=== PATIENT | female | born 1960 | race Caucasian/White ===

== ENCOUNTER 2021-03-31 08:38 | Day surgery (SDC) | payer BC ==
[2021-03-31] MEDS ORDERED: NA CHLORIDE 0.9% 1,000 ML ONE ×2 (08:44→12:27)
[2021-03-31] MEDS ORDERED: Mastisol Adhesive Liq ONE ×2 (10:57→14:35)
[2021-03-31] MEDS ORDERED: LIDOCAINE 1% W/EPI 1:100,000 MDV 20 ML VIAL ONE (10:57)
[2021-03-31] MEDS ORDERED: FENTANYL CITR 100 MCG/2 ML ONE ×2 (11:06→13:07)
[2021-03-31] MEDS ORDERED: MIDAZOLAM HCL 2 MG/2 ML INJ ONE (11:06)
[2021-03-31] MEDS ORDERED: propofoL 200 MG/20 ML VIAL IV ONE (11:06)
[2021-03-31] MEDS ORDERED: ROCURONIUM 50 MG/5 ML VIAL IV ONE (11:06)
[2021-03-31] MEDS ORDERED: dexAMETHasone 10 MG/ML VIAL ONE (11:06)
[2021-03-31] MEDS ORDERED: LIDOCAINE 2% MPF 5 ML VIAL ONE (11:07)
[2021-03-31] MEDS ORDERED: CEFAZOLIN SODIUM 1 GM/VIAL ONE (12:00)
[2021-03-31] MEDS ORDERED: ONDANSETRON 4 MG/2 ML VIAL ONE (12:06)
[2021-03-31] MEDS: HYDROMORPHONE HCL 1 MG/ML INJ ONE ×4 (13:42→15:59)
[2021-03-31] MEDS ORDERED: KETOROLAC 30 MG/ML INJ ONE (14:35)
[2021-03-31] MEDS ORDERED: CODEINE 30MG/APAP 300MG TAB ONE (16:38)
[2021-03-31 17:28] VITALS: BP 100/63; TEMP 97.3; O2SAT 94
--- NOTE | 2021-04-01 14:39 | OP ---
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 Procedure: Excision of left submandibular gland under general anesthesia. Anesthesia: General endotracheal anesthesia was administered. I also infiltrated approximately 10 m L of 1% lidocaine with 1:100,000 epinephrine into the incision site. Estimated Blood Loss: Approximately 25 to 30 mL. Specimen: Left submandibular gland was submitted to pathology for evaluation. Findings: Friable, scarred left submandibular gland that was multilobular. Complications: None. Disposition: Stable. The patient tolerated the procedure well. Indication For Procedure: The patient is a pleasant 60-year-old female, who presented to my office w ith multiple recurrent left submandibular gland infections secondary to sialodocholithiasis blocking the ducts and resulting in recurrent left floor of mouth abscess into Bella duct. Her condition khanna s been refractory to several incision and drainage procedures in the office as well as oral antibioti cs. These are indications to bring the patient to the operative suite for the above-mentioned proced ure. She understood and all questions were answered. Risks versus benefits and complications were e xplained in detail and a consent form was signed, which was placed in the chart. Description Of Procedure: The patient was transferred from the preoperative holding area to operativ e suite by Department of Anesthesia, placed on the operating table supine, sedated and intubated in n ormal fashion. I infiltrated approximately 10 mL of 1% lidocaine with 1:100,000 epinephrine to the l eft upper neck incision site. The upper neck was marked with a surgical marker and then the patient was sterilely prepped and draped. An incision was made with a #15 blade scalpel through the epidermal layer down to the platysma. The initial incision was made with a #15 blade scalpel and then I switched to a needlepoint Bovie electro cautery on the twentieth setting of coagulation. I then incised the platysma and the inferior edge o f the submandibular gland was identified and the tissues were elevated. The undersurface of the glan d was dissected to the submandibular capsule and then the soft tissues were taken off the superior mota rface of the gland being sure to stay in the plane of the fascia. The incision was carried out at le ast 2 cm below the mandible border to avoid the marginal mandibular nerve. The dissection was chuy d out along the inferior border where the facial artery was identified and ligated to the gland. The superior tissues were taken off the superior surface of the gland stay on the fascia. I then released it from the mylohyoid muscle and this was reflected superiorly. The salivary duct was identified and ligated and there was some accessory multilobular tissue along the inferior edge of th e gland and this was removed separately. The patient had a significantly scarred gland, which made d issection meticulous. She also had some oozing of blood after dissection was taken along the posteri or edge of the gland. Several vessels had to be clamped, ligated, and cut. Once the gland was compl etely removed, irrigation was introduced into the wound cavity and removed with suction. I then did a Valsalva and there was no evidence of bleeding vessels. I then placed Avitene into the wound bed f ollowed by closure of the platysma with a 3-0 Vicryl suture in an interrupted fashion. I then reappr oximated the subcutaneous and tissues with a 3-0 Vicryl suture in an interrupted fashion. I did brin g a small ASHELY drain through the skin and it was sutured to the skin with a 3-0 Ethilon suture. I then closed the dermal and epidermal layer with a 4-0 Monocryl suture in a subcuticular fashion. Ointmen t was placed as well as Steri-Strips and a compression dressing was applied. She was discharged to [facility] PACU in stable condition and will hopefully be able to be discharged home on antibiotic and analge sic medications, and will follow up in 1 day in my clinic for drain removal. She tolerated the procedure well. DAR/SEBASTIÁNL Voice ID: [id number] Report ID: [id number]
== END 2021-03-31 17:15 | disposition home or self-care (01) ==
LOC: OR 08:38
PROVIDERS: ATTEND Otolaryngology Facial Plastic Surgery
PROC: 0CTH0ZZ Resection of Left Submaxillary Gland, Open Approach (ICD-10-PCS; principal; 2021-03-31 10:00)
DX: K11.23 Chronic sialoadenitis (principal); K11.5 Sialolithiasis; Z20.822 Contact with and (suspected) exposure to COVID-19
CPT/HCPCS: 82947 ×2; 88307; 42440; U0002; J2704; J2250; J3010 ×2; J1100; J1170 ×2; J7030 ×2; J2405; J0690; 88305

== ENCOUNTER 2021-08-05 16:00 | Observation (INO) | payer BC ==
--- OUTSIDE RECORDS SUMMARY | 2021-08-05 16:04 | XMS REPORT | Continuity of Care Document ---
:1960 Author Organization [facility] t Address [address] [place] [address] Care Team Providers Name Role Phone DHRUV Primary Care Physician Unavailable LONA Attending Clinician Unavailable NICOLE Attending Clinician Unavailable RADIOLOGY Attending Clinician Unavailable Radiology Attending Clinician Unavailable DHRUV Attending Clinician Unavailable DOMINIC Attending Clinician Unavailable Dhruv WAYNE Attending Clinician Lab, Fam Pob I Attending Clinician Unavailable Kingsley DE LOS SANTOS Attending Clinician KINGSLEY Attending Clinician Unavailable Lainey WAYNE, A Attending Clinician UNKNOWN Attending Clinician Unavailable Clinic, Pcp Assessment Attending Clinician Unavailable Unknown Attending Clinician Unavailable Richard HERNANDEZ Attending Clinician Unavailable MD SOFYA Admitting Clinician Unavailable Richard HERNANDEZ Admitting Clinician Unavailable Payers Payer Name Policy Type Policy Number Effective Date Expiration Date S [facility] [id number] 2012 00:00:00 Problems Condition Condition Condition Status Onset Resolution Last Treating Co mments Source Name Details Category Date Date Treatment Clinician Date Type 2 Type 2 Disease Active 2016-04 [facility] diabetes, diabetes, 1-21 [place]y [place] uncontroll [place]controll [place] with 00 Medica l neuropathy neuropathy Br anch Neuropathy Neuropathy Disease Active 2016-04 U eveline 1-21 ity of 00:00: [place] 00 Medical Branch Type 2 Type 2 Disease Active 2014-04 Univers diabetes diabetes 0-29 ity of mellitus mellitus 00:00: [place] without without 00 Medical complicati complicati Br anch on on Hyperlipid Hyperlipid Disease Active 2014-04 U nivclaudia emia emia 0-29 ity of 00:00: [place] 00 Medical Branch Sleep Sleep Disease Active 2014-04 Univers apnea apnea 0-29 ity of 00:00: [place] [facility] Gout of Gout of Disease Active 2014-04 Univers foot foot 0-29 ity of 00:00: [place] [facility] Essential Essential Disease Active 2014-04 Uni vers hypertensi hypertensi 0-29 it y of on on 00:00: [place] [address] Medical Branch Allergies, Adverse Reactions, Alerts Allergy Allergy Status Severity Reaction(s) Onset Inactive Treating Comm ents Source Name Type Date Date Clinician Hydrocod Propensi Active Rash 2018-04 Univer s one ty to 2 ity of adverse 00:00: [place] reaction 00 Medical s Branch Ibuprofe Propensi Active Rash 2018-04 Univer s n ty to 2 ity of adverse 00:00: [place] reaction [facility] s Branch HYDROCOD DRUG Active High Rash 2018-04 Univers ONE INGREDI 2- ity of 00:00: [place] [facility] IBUPROFE DRUG Active High Rash 2018-04 Univers N INGREDI 2-31 ity of 00:00: [place] [address] Medical [place] Social History Social Habit Start Date Stop Date Quantity Comments Source Exposure to Yes [facility] SARS-CoV-2 [place] Medical (event) Branch Alcohol intake 2021-05-12 2021-05-12 Current [facility] 00:00:00 00:00:00 non-drinker of [facility] alcohol [place] (finding) Tobacco use and 2019-04-19 2019-04-19 Never used Universit y of exposure 00:00:00 00:00:00 [facility] Sex [birth year] At [birth year] Universit y of 00:00:00 00:00:00 [facility] Smoking Status Start Date Stop Date Source Never smoker [facility] Medical Branch Medications Ordered Filled Start Stop Current Ordering Indication Dosage Frequency Signature Comments Components Source Medication Medication Date Date Medication? Clinician (SIG) Name Name docusate 2019-04 Yes 100mg Take 100 Univ ers 100 mg 2-28 mg by ity of capsule 16:27: mouth 2 [place] 35 (two) Medical times Branch daily. docusate 2019-04 Yes 100mg Take 100 Univ ers 100 mg 2-28 mg by ity of capsule 16:27: mouth 2 [place] 35 (two) Medical times Branch daily. docusate 2020- Yes 100mg Take 100 Univ ers 100 mg 2-28 mg by ity of capsule 16:27: mouth 2 [place] 35 (two) Medical times Branch daily. docusate 2020- Yes 100mg Take 100 Univ ers 100 mg 2-28 mg by ity of capsule 16:27: mouth 2 [place] 35 (two) Medical times Branch daily. ferrous 2019-04 Yes 325mg Take 325 Unive rs sulfate 2-28 mg by ity of (IRON) 325 16:27: mouth [place] mg (65 mg 34 daily. Medical iron) Branch tablet CHOLECALCIF 2019-04 Yes 2000U Take 2,000 Univers KISHA, 2-28 Units by ity of VITAMIN D3, 16:27: mouth [place] (D3-2000 34 daily. Medical ORAL) Branch aspirin 2019-04 Yes 81mg Take 81 mg Univ ers (ASPIRIN 2-28 by mouth ity of LOW DOSE) 16:27: daily. [place] 81 mg EC 34 Medical tablet Branch CALCIUM 2019-04 Yes 1{tbl} Take 1 Univer s CARBONATE 2-28 tablet by ity o f (CALCIUM 16:27: mouth [place] 600 ORAL) 34 daily. Medical Branch ferrous 2019-04 Yes 325mg Take 325 Unive rs sulfate 2-28 mg by ity of (IRON) 325 16:27: mouth [place] mg (65 mg 34 daily. Medical iron) Branch tablet CHOLECALCIF 2019-04 Yes 2000U Take 2,000 Univers KISHA, 2-28 Units by ity of VITAMIN D3, 16:27: mouth [place] (D3-2000 34 daily. Medical ORAL) Branch aspirin 2019-04 Yes 81mg Take 81 mg Univ ers (ASPIRIN 2-28 by mouth ity of LOW DOSE) 16:27: daily. [place] 81 mg EC 34 Medical tablet Branch CALCIUM 2019-04 Yes 1{tbl} Take 1 Univer s CARBONATE 2-28 tablet by ity o f (CALCIUM 16:27: mouth [place] 600 ORAL) 34 daily. Medical Branch ferrous 2019- Yes 325mg Take 325 Unive rs sulfate 2-28 mg by ity of (IRON) 325 16:27: mouth [place] mg (65 mg 34 daily. Medical iron) Branch tablet CHOLECALCIF 2019-04 Yes 2000U Take 2,000 Univers KISHA, 2-28 Units by ity of VITAMIN D3, 16:27: mouth [place] (D3-2000 34 daily. Medical ORAL) Branch aspirin 2019-04 Yes 81mg Take 81 mg Univ ers (ASPIRIN 2-28 by mouth ity of LOW DOSE) 16:27: daily. [place] 81 mg EC 34 Medical tablet Branch CALCIUM 2019-04 Yes 1{tbl} Take 1 Univer s CARBONATE 2-28 tablet by ity o f (CALCIUM 16:27: mouth [place] 600 ORAL) 34 daily. Medical Branch ferrous 2019- Yes 325mg Take 325 Unive rs sulfate 2-28 mg by ity of (IRON) 325 16:27: mouth [place] mg (65 mg 34 daily. Medical iron) Branch tablet CHOLECALCIF 2019-04 Yes 2000U Take 2,000 Univers KISHA, 2-28 Units by ity of VITAMIN D3, 16:27: mouth [place] (D3-2000 34 daily. Medical ORAL) Branch aspirin 2019-04 Yes 81mg Take 81 mg Univ ers (ASPIRIN 2-28 by mouth ity of LOW DOSE) 16:27: daily. [place] 81 mg EC 34 Medical tablet Branch CALCIUM 2019-04 Yes 1{tbl} Take 1 Univer s CARBONATE 2-28 tablet by ity o f (CALCIUM 16:27: mouth [place] 600 ORAL) 34 daily. Medical Branch docusate 2019-04 Yes 100mg Take 100 Univ ers 100 mg 2-28 mg by ity of capsule 10:27: mouth 2 [place] 35 (two) Medical times Branch daily. ferrous 2019-04 Yes 325mg Take 325 Unive rs sulfate 2-28 mg by ity of (IRON) 325 10:27: mouth [place] mg (65 mg 34 daily. Medical iron) Branch tablet CHOLECALCIF 2019-04 Yes 2000U Take 2,000 Univers KISHA, 2-28 Units by ity of VITAMIN D3, 10:27: mouth [place] (D3-2000 34 daily. Medical ORAL) Branch aspirin 2019-04 Yes 81mg Take 81 mg Univ ers (ASPIRIN 2-28 by mouth ity of LOW DOSE) 10:27: daily. [place] 81 mg EC 34 Medical tablet Branch CALCIUM 2019-04 Yes 1{tbl} Take 1 Univer s CARBONATE 2-28 tablet by ity o f (CALCIUM 10:27: mouth [place] 600 ORAL) 34 daily. Medical Branch clotrimazol 2019-04 Yes [id number] 10mg Take 1 Univers e 10 mg 2-28 tablet by ity of malcolm 00:00: mouth 5 [place] 00 (five) Medical times Branch daily. clotrimazol 2020- Yes [id number] 10mg Take 1 Univers e 10 mg 2-28 tablet by ity of malcolm 00:00: mouth 5 (five) Medical times Branch daily. clotrimazol 2019-1 Yes [id number] 10mg Take 1 Univers e 10 mg 2-28 tablet by ity of malcolm 00:00: mouth 5 (five) Medical times Branch daily. clotrimazol 2019- Yes [id number] 10mg Take 1 Univers e 10 mg 2-28 tablet by ity of malcolm 00:00: mouth 5 (five) Medical times Branch daily. clotrimazol 2019-1 Yes [id number] 10mg Take 1 Univers e 10 mg 2-28 tablet by ity of malcolm 00:00: mouth 5 (five) Medical times Branch daily. clotrimazol 2019-0 2020- No [id number] 10mg Take 1 Univers e 10 mg 7-19 07-30 tablet by ity of malcolm 00:00: 04:59 mouth 5 [place] 00 :00 (five) Medical times Branch daily for 10 days. clotrimazol 2019-0 2020- No [id number] 10mg Take 1 Univers e 10 mg 7-19 07-30 tablet by ity of malcolm 00:00: 04:59 mouth 5 [place] 00 :00 (five) Medical times Branch daily for 10 days. amoxicillin 2018-04 Yes [id number] 1{tbl} Take 1 Univers -clavulanat 2-31 tablet by ity of e 00:00: mouth 2 [place] (AUGMENTIN) 00 (two) Medical 875-125 mg times Branch per tablet daily. amoxicillin 2018-04 Yes [id number] 1{tbl} Take 1 Univers -clavulanat 2-31 tablet by ity of e 00:00: mouth 2 [place] (AUGMENTIN) 00 (two) Medical 875-125 mg times Branch per tablet daily. amoxicillin 2018-04 Yes [id number] 1{tbl} Take 1 Univers -clavulanat 2-31 tablet by ity of e 00:00: mouth 2 [place] (AUGMENTIN) 00 (two) Medical 875-125 mg times Branch per tablet daily. amoxicillin 2018-04 Yes [id number] 1{tbl} Take 1 Univers -clavulanat 2-31 tablet by ity of e 00:00: mouth 2 [place] (AUGMENTIN) 00 (two) Medical 875-125 mg times Branch per tablet daily. amoxicillin 2018-04 Yes [id number] 1{tbl} Take 1 Univers -clavulanat 2-31 tablet by ity of e 00:00: mouth 2 [place] (AUGMENTIN) 00 (two) Medical 875-125 mg times Branch per tablet daily. amoxicillin 2018-04 Yes [id number] 1{tbl} Take 1 Univers -clavulanat 2-31 tablet by ity of e 00:00: mouth 2 [place] (AUGMENTIN) 00 (two) Medical 875-125 mg times Branch per tablet daily. amoxicillin 2018-04 Yes [id number] 1{tbl} Take 1 Univers -clavulanat 2-31 tablet by ity of e 00:00: mouth 2 [place] (AUGMENTIN) 00 (two) Medical 875-125 mg times Branch per tablet daily. loratadine 2018- Yes [id number] TAKE ONE Univers 10 mg 6-07 (1) ity of tablet 00:00: TABLET(S) 00 BY MOUTH Medical ONCE A Branch DAY. loratadine 2018-0 Yes [id number] TAKE ONE Univers 10 mg 6-07 (1) ity of tablet 00:00: TABLET(S) 00 BY MOUTH Medical ONCE A Branch DAY. loratadine 2018-0 Yes [id number] TAKE ONE Univers 10 mg 6-07 (1) ity of tablet 00:00: TABLET(S) 00 BY MOUTH Medical ONCE A Branch DAY. loratadine 2018-0 Yes [id number] TAKE ONE Univers 10 mg 6-07 (1) ity of tablet 00:00: TABLET(S) [place] 00 BY MOUTH Medical ONCE A Branch DAY. loratadine 2019-0 Yes [id number] TAKE ONE Univers 10 mg 6-07 (1) ity of tablet 00:00: TABLET(S) [place] 00 BY MOUTH Medical ONCE A Branch DAY. loratadine 2019-0 Yes [id number] TAKE ONE Univers 10 mg 6-07 (1) ity of tablet 00:00: TABLET(S) 00 BY MOUTH Medical ONCE A Branch DAY. loratadine 2019-0 Yes [id number] TAKE ONE Univers 10 mg 6-07 (1) ity of tablet 00:00: TABLET(S) [place] 00 BY MOUTH Medical ONCE A Branch DAY. sulfamethox 2019-0 Yes [id number] 1{tbl} Take 1 Univers azole-trime 4-09 tablet by ity of thoprim 00:00: mouth 2 [place] (BACTRIM 00 (two) Medical DS) 800-160 times Branch mg per daily. tablet mupirocin 2 2019-0 Yes [id number] Apply to Univers % ointment 4-09 area(s) 2 ity of 00:00: (two) [place] 00 times Medical daily. Branch Apply to nares and under fingernail s twice daily sulfamethox 2019-0 Yes [id number] 1{tbl} Take 1 Univers azole-trime 4-09 tablet by ity of thoprim 00:00: mouth 2 [place] (BACTRIM 00 (two) Medical DS) 800-160 times Branch mg per daily. tablet mupirocin 2 2019-0 Yes [id number] Apply to Univers % ointment 4-09 area(s) 2 ity of 00:00: (two) [place] 00 times Medical daily. Branch Apply to nares and under fingernail s twice daily sulfamethox 2019-0 Yes [id number] 1{tbl} Take 1 Univers azole-trime 4-09 tablet by ity of thoprim 00:00: mouth 2 [place] (BACTRIM 00 (two) Medical DS) 800-160 times Branch mg per daily. tablet mupirocin 2 2019-0 Yes [id number] Apply to Univers % ointment 4-09 area(s) 2 ity of 00:00: (two) [place] 00 times Medical daily. Branch Apply to nares and under fingernail s twice daily sulfamethox 2019-0 Yes [id number] 1{tbl} Take 1 Univers azole-trime 4-09 tablet by ity of thoprim 00:00: mouth 2 [place] (BACTRIM 00 (two) Medical DS) 800-160 times Branch mg per daily. tablet mupirocin 2 2019-0 Yes [id number] Apply to Univers % ointment 4-09 area(s) 2 ity of 00:00: (two) [place] 00 times Medical daily. Branch Apply to nares and under fingernail s twice daily sulfamethox 2019-0 Yes [id number] 1{tbl} Take 1 Univers azole-trime 4-09 tablet by ity of thoprim 00:00: mouth 2 [place] (BACTRIM 00 (two) Medical DS) 800-160 times Branch mg per daily. tablet mupirocin 2 Yes [id number] Apply to Univers % ointment 4-09 area(s) 2 ity of 00:00: (two) [place] 00 times Medical daily. Branch Apply to nares and under fingernail s twice daily sulfamethox Yes [id number] 1{tbl} Take 1 Univers azole-trime 4-09 tablet by ity of thoprim 00:00: mouth 2 [place] (BACTRIM 00 (two) Medical DS) 800-160 times Branch mg per daily. tablet mupirocin 2 Yes [id number] Apply to Univers % ointment 4-09 area(s) 2 ity of 00:00: (two) [place] 00 times Medical daily. Branch Apply to nares and under fingernail s twice daily sulfamethox Yes [id number] 1{tbl} Take 1 Univers azole-trime 4-09 tablet by ity of thoprim 00:00: mouth 2 [place] (BACTRIM 00 (two) Medical DS) 800-160 times Branch mg per daily. tablet mupirocin 2 Yes [id number] Apply to Univers % ointment 4-09 area(s) 2 ity of 00:00: (two) [place] 00 times Medical daily. Branch Apply to nares and under fingernail s twice daily acetaminoph 2017-04 Yes 1{tbl} Take 1 Un nancie en-codeine 1-26 tablet by ity of (TYLENOL-CO 00:00: mouth [place] DEINE #3) 00 every 6 Medical 300-30 mg (six) Branch tablet hours as needed for Pain (scale 4-6). acetaminoph 2017-04 Yes 1{tbl} Take 1 Un nancie en-codeine 1-26 tablet by ity of (TYLENOL-CO 00:00: mouth [place] DEINE #3) 00 every 6 Medical 300-30 mg (six) Branch tablet hours as needed for Pain (scale 4-6). acetaminoph 2017-04 Yes 1{tbl} Take 1 Un nancie en-codeine 1-26 tablet by ity of (TYLENOL-CO 00:00: mouth [place] DEINE #3) 00 every 6 Medical 300-30 mg (six) Branch tablet hours as needed for Pain (scale 4-6). acetaminoph 2017-04 Yes 1{tbl} Take 1 Un nancie en-codeine 1-26 tablet by ity of (TYLENOL-CO 00:00: mouth [place] DEINE #3) 00 every 6 Medical 300-30 mg (six) Branch tablet hours as needed for Pain (scale 4-6). acetaminoph 2017-04 Yes 1{tbl} Take 1 Un nancie en-codeine 1-26 tablet by ity of (TYLENOL-CO 00:00: mouth [place] DEINE #3) 00 every 6 Medical 300-30 mg (six) Branch tablet hours as needed for Pain (scale 4-6). acetaminoph 2017-04 Yes 1{tbl} Take 1 Un nancie en-codeine 1-26 tablet by ity of (TYLENOL-CO 00:00: mouth [place] DEINE #3) 00 every 6 Medical 300-30 mg (six) Branch tablet hours as needed for Pain (scale 4-6). acetaminoph 2017-04 Yes 1{tbl} Take 1 Un nancie en-codeine 1-26 tablet by ity of (TYLENOL-CO 00:00: mouth [place] DEINE #3) 00 every 6 Medical 300-30 mg (six) Branch tablet hours as needed for Pain (scale 4-6). allopurinol 2018-0 Yes 300mg Take 1 Uni vers 300 mg 2-07 tablet by ity of tablet 00:00: mouth [place] 00 daily. Medical Branch allopurinol 2018-0 Yes 300mg Take 1 Uni vers 300 mg 2-07 tablet by ity of tablet 00:00: mouth [place] 00 daily. Medical Branch allopurinol 2018-0 Yes 300mg Take 1 Uni vers 300 mg 2-07 tablet by ity of tablet 00:00: mouth [place] 00 daily. [facility] Branch allopurinol 2018-0 Yes 300mg Take 1 Uni vers 300 mg 2-07 tablet by ity of tablet 00:00: mouth [place] 00 daily. [facility] Branch allopurinol 2018-0 Yes 300mg Take 1 Uni vers 300 mg 2-07 tablet by ity of tablet 00:00: mouth [place] 00 daily. Medical Branch allopurinol 2017-0 Yes 300mg Take 1 Uni vers 300 mg 2-07 tablet by ity of tablet 00:00: mouth [place] 00 daily. Medical Branch allopurinol 2018-0 Yes 300mg Take 1 Uni vers 300 mg 2-07 tablet by ity of tablet 00:00: mouth [place] 00 daily. Medical Branch nabumetone 2017-0 Yes TAKE ONE Uni vers 750 mg 2-05 (1) ity of tablet 00:00: TABLET(S) [place] 00 BY MOUTH Medical TWICE A Branch DAY. nabumetone 0 Yes TAKE ONE Uni vers 750 mg 2-05 (1) ity of tablet 00:00: TABLET(S) [place] 00 BY MOUTH Medical TWICE A Branch DAY. nabumetone 0 Yes TAKE ONE Uni vers 750 mg 2-05 (1) ity of tablet 00:00: TABLET(S) [place] 00 BY MOUTH Medical TWICE A Branch DAY. nabumetone 0 Yes TAKE ONE Uni vers 750 mg 2-05 (1) ity of tablet 00:00: TABLET(S) [place] 00 BY MOUTH Medical TWICE A Branch DAY. nabumetone 0 Yes TAKE ONE Uni vers 750 mg 2-05 (1) ity of tablet 00:00: TABLET(S) [place] 00 BY MOUTH Medical TWICE A Branch DAY. nabumetone 0 Yes TAKE ONE Uni vers 750 mg 2-05 (1) ity of tablet 00:00: TABLET(S) [place] 00 BY MOUTH Medical TWICE A Branch DAY. nabumetone 0 Yes TAKE ONE Uni vers 750 mg 2-05 (1) ity of tablet 00:00: TABLET(S) [place] 00 BY MOUTH Medical TWICE A Branch DAY. gabapentin 2016- Yes [id number] 800mg Take 1 Univers 800 mg 2-06 tablet by ity of tablet 00:00: mouth 3 00 (three) Medical times Branch daily. gabapentin 2016- Yes [id number] 800mg Take 1 Univers 800 mg 2-06 tablet by ity of tablet 00:00: mouth 3 [place] 00 (three) Medical times Branch daily. gabapentin 2016- Yes [id number] 800mg Take 1 Univers 800 mg 2-06 tablet by ity of tablet 00:00: mouth 3 [place] 00 (three) Medical times Branch daily. gabapentin 2016-04 Yes [id number] 800mg Take 1 Univers 800 mg 2-06 tablet by ity of tablet 00:00: mouth 3 [place] 00 (three) Medical times Branch daily. gabapentin 2016-04 Yes [id number] 800mg Take 1 Univers 800 mg 2-06 tablet by ity of tablet 00:00: mouth 3 [place] 00 (three) Medical times Branch daily. gabapentin 2016-04 Yes [id number] 800mg Take 1 Univers 800 mg 2-06 tablet by ity of tablet 00:00: mouth 3 [place] 00 (three) Medical times Branch daily. gabapentin 2016-04 Yes [id number] 800mg Take 1 Univers 800 mg 2-06 tablet by ity of tablet 00:00: mouth 3 [place] 00 (three) Medical times Branch daily. Potassium 2016-04 Yes 1{tbl} Take 1 Univ ers Gluconate 1-21 tablet by ity o f 595 mg (99 20:18: mouth [place] mg) Tab 17 daily. [facility] Branch MULTIVIT,CA 2016-04 Yes 1{tbl} Take 1 Un nancie LC,MINS/IRO 1-21 tablet by ity of N/FOLIC 20:18: mouth [place] (ONE-A-DAY 17 daily. [facility] FORMULA ORAL) Potassium 2016-04 Yes 1{tbl} Take 1 Univ ers Gluconate 1-21 tablet by ity o f 595 mg (99 20:18: mouth [place] mg) Tab 17 daily. [facility] Branch MULTIVIT,CA 2016-04 Yes 1{tbl} Take 1 Un nancie LC,MINS/IRO 1-21 tablet by ity of N/FOLIC 20:18: mouth [place] (ONE-A-DAY 17 daily. [facility] FORMULA ORAL) Potassium 2016-04 Yes 1{tbl} Take 1 Univ ers Gluconate 1-21 tablet by ity o f 595 mg (99 20:18: mouth [place] mg) Tab 17 daily. [facility] Branch MULTIVIT,CA 2016-04 Yes 1{tbl} Take 1 Un nancie LC,MINS/IRO 1-21 tablet by ity of N/FOLIC 20:18: mouth [place] (ONE-A-DAY 17 daily. Medical [facility] FORMULA ORAL) Potassium 2016-04 Yes 1{tbl} Take 1 Univ ers Gluconate 1-21 tablet by ity o f 595 mg (99 20:18: mouth [place] mg) Tab 17 daily. Medical Branch MULTIVIT,CA 2016-04 Yes 1{tbl} Take 1 Un nancie LC,MINS/IRO 1-21 tablet by ity of N/FOLIC 20:18: mouth [place] (ONE-A-DAY 17 daily. Medical WOMENS Branch FORMULA ORAL) ferrous 2016-04 Yes 325mg Take 325 Unive rs sulfate 1-21 mg by ity of (IRON) 325 20:18: mouth [place] mg (65 mg 17 daily. Medical iron) Branch tablet CHOLECALCIF 2016-04 Yes 2000U Take 2,000 Univers KISHA, 1-21 Units by ity of VITAMIN D3, 20:18: mouth [place] (D3-2000 17 daily. Medical ORAL) Branch aspirin 2016-04 Yes 81mg Take 81 mg Univ ers (ASPIRIN 1-21 by mouth ity of LOW DOSE) 20:18: daily. [place] 81 mg EC 17 Medical tablet Branch Potassium 2016-04 Yes 1{tbl} Take 1 Univ ers Gluconate 1-21 tablet by ity o f 595 mg (99 20:18: mouth [place] mg) Tab 17 daily. Medical Branch MULTIVIT,CA 2016-04 Yes 1{tbl} Take 1 Un nancie LC,MINS/IRO 1-21 tablet by ity of N/FOLIC 20:18: mouth [place] (ONE-A-DAY 17 daily. Medical WOMENS Branch FORMULA ORAL) CALCIUM 2016-04 Yes 1{tbl} Take 1 Univer s CARBONATE 1-21 tablet by ity o f (CALCIUM 20:18: mouth [place] 600 ORAL) 17 daily. Medical Branch docusate 2016-04 Yes 100mg Take 100 Univ ers 100 mg 1-21 mg by ity of capsule 20:18: mouth 2 [place] 17 (two) Medical times Branch daily. ferrous 2016-04 Yes 325mg Take 325 Unive rs sulfate 1-21 mg by ity of (IRON) 325 20:18: mouth [place] mg (65 mg 17 daily. Medical iron) Branch tablet CHOLECALCIF 2016-04 Yes 2000U Take 2,000 Univers KISHA, 1-21 Units by ity of VITAMIN D3, 20:18: mouth [place] (D3-2000 17 daily. Medical ORAL) Branch aspirin 2016-04 Yes 81mg Take 81 mg Univ ers (ASPIRIN 1-21 by mouth ity of LOW DOSE) 20:18: daily. [place] 81 mg EC 17 Medical tablet Branch Potassium 2016-04 Yes 1{tbl} Take 1 Univ ers Gluconate 1-21 tablet by ity o f 595 mg (99 20:18: mouth [place] mg) Tab 17 daily. Medical Branch MULTIVIT,CA 2016-04 Yes 1{tbl} Take 1 Un nancie LC,MINS/IRO 1-21 tablet by ity of N/FOLIC 20:18: mouth [place] (ONE-A-DAY 17 daily. Medical WOMENS [place] FORMULA ORAL) CALCIUM 2016-04 Yes 1{tbl} Take 1 Univer s CARBONATE 1-21 tablet by ity o f (CALCIUM 20:18: mouth [place] 600 ORAL) 17 daily. Medical Branch docusate 2016-04 Yes 100mg Take 100 Univ ers 100 mg 1-21 mg by ity of capsule 20:18: mouth 2 [place] 17 (two) Medical times Branch daily. Potassium 2016-04 Yes 1{tbl} Take 1 Univ ers Gluconate 1-21 tablet by ity o f 595 mg (99 14:18: mouth [place] mg) Tab 17 daily. Medical Branch [facility],CA 2016-04 Yes 1{tbl} Take 1 Un nancie LC,MINS/IRO 1-21 tablet by ity of N/FOLIC 14:18: mouth [place] (ONE-A-DAY 17 [facility]. [facility] glimepiride 2016-04 Yes [id number] 2mg Take 1 Univers 2 mg tablet 1-21 tablet by ity of 00:00: mouth 2 [place] 00 (two) Medical times Branch daily. blood sugar 2016-04 Yes [id number] Use up to Univers diagnostic 1-21 2 times ity of (BLOOD 00:00: daily. [place] GLUCOSE 00 Please Medical TEST) strip give Branch InControl G 20 glimepiride 2016-04 Yes [id number] 2mg Take 1 Univers 2 mg tablet 1-21 tablet by ity of 00:00: mouth 2 [place] 00 (two) Medical times Branch daily. blood sugar 2016-04 Yes [id number] Use up to Univers diagnostic 1-21 2 times ity of (BLOOD 00:00: daily. [place] GLUCOSE 00 Please Medical TEST) strip give Branch InControl G 20 glimepiride 2016-04 Yes [id number] 2mg Take 1 Univers 2 mg tablet 1-21 tablet by ity of 00:00: mouth 2 [place] 00 (two) Medical times Branch daily. blood sugar 2016-04 Yes [id number] Use up to Univers diagnostic 1-21 2 times ity of (BLOOD 00:00: daily. [place] GLUCOSE 00 Please Medical TEST) strip give Branch InControl G 20 glimepiride 2016-04 Yes [id number] 2mg Take 1 Univers 2 mg tablet 1-21 tablet by ity of 00:00: mouth 2 [place] 00 (two) Medical times Branch daily. blood sugar 2016-04 Yes [id number] Use up to Univers diagnostic 1-21 2 times ity of (BLOOD 00:00: daily. [place] GLUCOSE 00 Please Medical TEST) strip give Branch InControl G 20 glimepiride 2016-04 Yes [id number] 2mg Take 1 Univers 2 mg tablet 1-21 tablet by ity of 00:00: mouth 2 [place] 00 (two) Medical times Branch daily. blood sugar 2016-04 Yes [id number] Use up to Univers diagnostic 1-21 2 times ity of (BLOOD 00:00: daily. [place] GLUCOSE 00 Please Medical TEST) strip give Branch InControl G 20 glimepiride 2016-04 Yes [id number] 2mg Take 1 Univers 2 mg tablet 1-21 tablet by ity of 00:00: mouth 2 [place] 00 (two) Medical times Branch daily. blood sugar 2016-04 Yes [id number] Use up to Univers diagnostic 1-21 2 times ity of (BLOOD 00:00: daily. [place] GLUCOSE 00 Please Medical TEST) strip give Branch InControl G 20 glimepiride 2016-04 Yes [id number] 2mg Take 1 Univers 2 mg tablet 1-21 tablet by ity of 00:00: mouth 2 [place] 00 (two) Medical times Branch daily. blood sugar 2016-04 Yes [id number] Use up to Univers diagnostic 1-21 2 times ity of (BLOOD 00:00: daily. [place] GLUCOSE 00 Please Medical TEST) strip give Branch InControl G 20 dulaglutide Yes 1.5mg inject 1.5 Univers (TRULICITY) 8-15 mg under ity of 1.5 mg/0.5 00:00: the skin [place] as mL PnIj 00 weekly. Medical Branch metformin Yes 1000mg Take 2 Univ ers ER 500 mg 8-15 tablets by ity of 24 hr 00:00: mouth 2 [place] tablet 00 (two) Medical times Branch daily with meals. empaglifloz Yes Take 1 Univ ers in 8-15 TAB-CAP/M2 ity of (JARDIANCE) 00:00: by mouth [place] 25 mg Tab 00 daily. Medical Branch valsartan-h Yes [id number] 1{tbl} Take 1 Univers ydrochlorot 8-15 tablet by ity of hiazide 00:00: mouth [place] 320-25 mg 00 daily. Medical per tablet Branch carvedilol Yes [id number] 12.5mg Take 1 Univers (COREG) 8-15 tablet by ity of 12.5 mg 00:00: mouth 2 [place] tablet 00 (two) Medical times Branch daily with meals. lancets (BD Yes Use up to U nivers ULTRA FINE 8-15 3 times ity of LANCETS) 33 00:[place] gauge Misc 00 Please Medical give Branch InControl G 20 pravastatin Yes [id number] 20mg Take 1 Univers 20 mg 8-15 tablet by ity of tablet 00:00: mouth at [place] 00 bedtime. Medical Branch dulaglutide Yes 1.5mg inject 1.5 Univers (TRULICITY) 8-15 mg under ity of 1.5 mg/0.5 00:00: the skin [place] mL PnIj 00 weekly. Medical Branch metformin Yes 1000mg Take 2 Univ ers ER 500 mg 8-15 tablets by ity of 24 hr 00:00: mouth 2 [place] tablet 00 (two) Medical times Branch daily with meals. empaglifloz Yes Take 1 Univ ers in 8-15 TAB-CAP/M2 ity of (JARDIANCE) 00:00: by mouth [place] 25 mg Tab 00 daily. Medical Branch valsartan-h Yes [id number] 1{tbl} Take 1 Univers ydrochlorot 8-15 tablet by ity of hiazide 00:00: mouth [place] 320-25 mg 00 daily. Medical per tablet Branch carvedilol Yes [id number] 12.5mg Take 1 Univers (COREG) 8-15 tablet by ity of 12.5 mg 00:00: mouth 2 [place] tablet 00 (two) Medical times Branch daily with meals. lancets (BD Yes Use up to U nivers ULTRA FINE 8-15 3 times ity of LANCETS) 33 00:00: daily. [place] gauge Misc 00 Please Medical give Branch InControl G 20 pravastatin Yes [id number] 20mg Take 1 Univers 20 mg 8-15 tablet by ity of tablet 00:00: mouth at [place] 00 bedtime. Medical Branch dulaglutide Yes 1.5mg inject 1.5 Univers (TRULICITY) 8-15 mg under ity of 1.5 mg/0.5 00:00: the skin [place] mL PnIj 00 weekly. Medical Branch metformin Yes 1000mg Take 2 Univ ers ER 500 mg 8-15 tablets by ity of 24 hr 00:00: mouth 2 [place] tablet 00 (two) Medical times Branch daily with meals. empaglifloz Yes Take 1 Univ ers in 8-15 TAB-CAP/M2 ity of (JARDIANCE) 00:00: by mouth [place] 25 mg Tab 00 daily. Medical Branch valsartan-h Yes [id number] 1{tbl} Take 1 Univers ydrochlorot 8-15 tablet by ity of hiazide 00:00: mouth [place] 320-25 mg 00 daily. Medical per tablet Branch carvedilol Yes [id number] 12.5mg Take 1 Univers (COREG) 8-15 tablet by ity of 12.5 mg 00:00: mouth 2 [place] tablet 00 (two) Medical times Branch daily with meals. lancets (BD Yes Use up to U nivers ULTRA FINE 8-15 3 times ity of LANCETS) 33 00:00: daily. [place] gauge Misc 00 Please Medical give Branch InControl G 20 pravastatin Yes [id number] 20mg Take 1 [facility] 20 mg 8-15 tablet by ity of tablet 00:00: mouth at [place] 00 bedtime. Medical Branch dulaglutide Yes 1.5mg inject 1.5 Univers (TRULICITY) 8-15 mg under ity of 1.5 mg/0.5 00:00: the skin [place] mL PnIj 00 weekly. Medical Branch metformin Yes 1000mg Take 2 Univ ers ER 500 mg 8-15 tablets by ity of 24 hr 00:00: mouth 2 [place] tablet 00 (two) Medical times Branch daily with meals. empaglifloz Yes Take 1 Univ ers in 8-15 TAB-CAP/M2 ity of ([place]) 00:00: by mouth [place] 25 mg Tab 00 daily. Medical Branch valsartan-h Yes [id number] 1{tbl} Take 1 Univers ydrochlorot 8-15 tablet by ity of hiazide 00:00: mouth [place] 320-25 mg 00 daily. Medical per tablet Branch carvedilol Yes [id number] 12.5mg Take 1 Univers (COREG) 8-15 tablet by ity of 12.5 mg 00:00: mouth 2 [place] tablet 00 (two) Medical times Branch daily with meals. lancets (BD Yes Use up to U nivers ULTRA FINE 8-15 3 times ity of LANCETS) 33 00:00: [place] gauge Misc 00 Please Medical give Branch InControl G 20 pravastatin Yes [id number] 20mg Take 1 [facility] 20 mg 8-15 tablet by ity of tablet 00:00: mouth at [place] 00 bedtime. Medical Branch dulaglutide Yes 1.5mg inject 1.5 Univers (TRULICITY) 8-15 mg under ity of 1.5 mg/0.5 00:00: the skin [place] mL PnIj 00 weekly. Medical Branch metformin Yes 1000mg Take 2 Univ ers ER 500 mg 8-15 tablets by ity of 24 hr 00:00: mouth 2 [place] tablet 00 (two) Medical times Branch daily with meals. empaglifloz Yes Take 1 Univ ers in 8-15 TAB-CAP/M2 ity of (J[place]IANCE) 00:00: by mouth [place] 25 mg Tab 00 daily. Medical Branch valsartan-h Yes [id number] 1{tbl} Take 1 Univers ydrochlorot 8-15 tablet by ity of hiazide 00:00: mouth [place] 320-25 mg 00 daily. Medical per tablet Branch carvedilol Yes [id number] 12.5mg Take 1 Univers (COREG) 8-15 tablet by ity of 12.5 mg 00:00: mouth 2 [place] tablet 00 (two) Medical times Branch daily with meals. lancets (BD Yes Use up to U nivers ULTRA FINE 8-15 3 times ity of LANCETS) 33 00:00: [place]. [place] gauge Misc 00 Please Medical give Branch InControl G 20 pravastatin Yes [id number] 20mg Take 1 [facility] 20 mg 8-15 tablet by ity of tablet 00:00: mouth at [place] 00 bedtime. Medical Branch dulaglutide Yes 1.5mg inject 1.5 Univers (TRULICITY) 8-15 mg under ity of 1.5 mg/0.5 00:00: the skin [place] mL PnIj 00 weekly. Medical Branch metformin Yes 1000mg Take 2 Univ ers ER 500 mg 8-15 tablets by ity of 24 hr 00:00: mouth 2 [place] tablet 00 (two) Medical times Branch daily with meals. empaglifloz Yes Take 1 Univ ers in 8-15 TAB-CAP/M2 ity of (J[place]IANCE) 00:00: by mouth [place] 25 mg Tab 00 daily. Medical Branch valsartan-h Yes [id number] 1{tbl} Take 1 Univers ydrochlorot 8-15 tablet by ity of hiazide 00:00: mouth [place] 320-25 mg 00 daily. Medical per tablet Branch carvedilol Yes [id number] 12.5mg Take 1 Univers (COREG) 8-15 tablet by ity of 12.5 mg 00:00: mouth 2 [place] tablet 00 (two) Medical times Branch daily with meals. lancets (BD Yes Use up to U nivers ULTRA FINE 8-15 3 times ity of LANCETS) 33 00:00: daily. [place] gauge Misc 00 Please Medical give Branch InControl G 20 pravastatin Yes [id number] 20mg Take 1 [facility] 20 mg 8-15 tablet by ity of tablet 00:00: mouth at [place] 00 bedtime. Medical Branch dulaglutide Yes 1.5mg inject 1.5 Univers (TRULICITY) 8-15 mg under ity of 1.5 mg/0.5 00:00: the skin [place] mL PnIj 00 weekly. Medical Branch metformin Yes 1000mg Take 2 Univ ers ER 500 mg 8-15 tablets by ity of 24 hr 00:00: mouth 2 [place] tablet 00 (two) Medical times Branch daily with meals. empaglifloz Yes Take 1 Univ ers in 8-15 TAB-CAP/M2 ity of ([place]) 00:00: by mouth [place] 25 mg Tab 00 daily. Medical Branch valsartan-h Yes [id number] 1{tbl} Take 1 Univers ydrochlorot 8-15 tablet by ity of hiazide 00:00: mouth [place] 320-25 mg 00 daily. Medical per tablet Branch carvedilol Yes [id number] 12.5mg Take 1 Univers (COREG) 8-15 tablet by ity of 12.5 mg 00:00: mouth 2 [place] tablet 00 (two) Medical times Branch daily with meals. lancets (BD Yes Use up to U nivers ULTRA FINE 8-15 3 times ity of LANCETS) 33 00:00: [place]. [place] gauge Misc 00 Please Medical give Branch InControl G 20 pravastatin Yes [id number] 20mg Take 1 [facility] 20 mg 8-15 tablet by ity of tablet 00:00: mouth at [place] 00 bedtime. Medical Branch NOVOTWIST Yes Univers 32 gauge x 6-01 ity of 1/5" Ndle 00:00: Medical Branch NOVOTWIST Yes Univers 32 gauge x 6-01 ity of 1/5" Ndle 00:00: Medical Branch NOVOTWIST Yes Univers 32 gauge x 6-01 ity of 1/5" Ndle 00:00: Medical Branch NOVOTWIST Yes Univers 32 gauge x 6-01 ity of 1/5" Ndle 00:00: Medical Branch NOVOTWIST Yes Univers 32 gauge x 6-01 ity of 1/5" Ndle 00:00: Medical Branch NOVOTWIST Yes Univers 32 gauge x 6-01 ity of 1/5" Ndle 00:00: Medical Branch NOVOTWIST Yes Univers 32 gauge x 6-01 ity of 1/5" Ndle 00:00: [place] [facility] diclofenac Yes 75mg Take 75 mg U nivers 75 mg EC 5-10 by mouth 2 ity o f tablet 00:00: (two) [place] 00 times Medical daily. Branch diclofenac 2017-0 Yes 75mg Take 75 mg U nivers 75 mg EC 5-10 by mouth 2 ity o f tablet 00:00: (two) [place] 00 times Medical daily. Branch diclofenac 2017-0 Yes 75mg Take 75 mg U nivers 75 mg EC 5-10 by mouth 2 ity o f tablet 00:00: (two) [place] 00 times Medical daily. Branch diclofenac 2017-0 Yes 75mg Take 75 mg U nivers 75 mg EC 5-10 by mouth 2 ity o f tablet 00:00: (two) [place] 00 times Medical daily. Branch diclofenac 2017-0 Yes 75mg Take 75 mg U nivers 75 mg EC 5-10 by mouth 2 ity o f tablet 00:00: (two) [place] 00 times Medical daily. Branch diclofenac 2017-0 Yes 75mg Take 75 mg U nivers 75 mg EC 5-10 by mouth 2 ity o f tablet 00:00: (two) [place] 00 times Medical daily. Branch diclofenac 2017-0 Yes 75mg Take 75 mg U nivers 75 mg EC 5-10 by mouth 2 ity o f tablet 00:00: (two) [place] 00 times Medical daily. Branch INCONTROL 2017-0 Yes Univers ULTRA THIN 3-14 ity of LANCETS 28 00:00: [facility] Medical Branch INCONTROL 2017-0 Yes Univers ULTRA THIN 3-14 ity of LANCETS 28 00:00: [facility] Medical Branch INCONTROL 2017-0 Yes Univers ULTRA THIN 3-14 ity of LANCETS 28 00:00: [facility] Medical Branch INCONTROL 2017-0 Yes Univers ULTRA THIN 3-14 ity of LANCETS 28 00:00: [facility] Medical Branch INCONTROL 2017-0 Yes Univers ULTRA THIN 3-14 ity of LANCETS 28 00:00: [facility] Medical Branch INCONTROL 2017-0 Yes Univers ULTRA THIN 3-14 ity of LANCETS 28 00:00: [facility] Medical Branch INCONTROL 2017-0 Yes Univers ULTRA THIN 3-14 ity of LANCETS 28 00:00: [facility] Medical Branch ONETOUCH 2015-0 Yes Univers DELICA 9-16 ity of LANCETS 30 00:00: [facility] Medical Branch ONETOUCH 2015-0 Yes Univers DELICA 9-16 ity of LANCETS 30 00:00: [place] gauge Misc 00 Medical Branch ONETOUCH 2015-0 Yes Univers DELICA 9-16 ity of LANCETS 30 00:00: [place] gauge Misc 00 Medical Branch ONETOUCH 2015-0 Yes Univers DELICA 9-16 ity of LANCETS 30 00:00: [place] gauge Misc 00 Medical Branch ONETOUCH 2015-0 Yes Univers DELICA 9-16 ity of LANCETS 30 00:00: [place] gauge Misc 00 Medical Branch ONETOUCH 2015-0 Yes Univers DELICA 9-16 ity of LANCETS 30 00:00: [place] gauge Misc 00 Medical Branch ONETOUCH 2015-0 Yes Univers DELICA 9-16 ity of LANCETS 30 00:00: [place] [facility] 00 Medical Branch Immunizations Ordered Filled Immunization Date Status Comments Sour e Immunization Name Name SARS-COV-2 COVID-19 2020-07-06 Completed Unive rsity of PFIZER VACCINE 00:00:00 [facility] [place] SARS-COV-2 COVID-19 2020-06-15 Completed Unive rsity of PFIZER VACCINE 00:00:00 [facility] [place] Influenza Virus 2020-01-29 Completed Universit y of Vaccine Quad .5 mL 00:00:00 [facility] 6+ MO Branch Influenza Virus 2020-01-29 Completed Universit y of Vaccine Quad .5 mL 00:00:00 [facility] IM 6+ MO Branch Influenza Virus 2020-01-29 Completed Universit y of Vaccine Quad .5 mL 00:00:00 [facility] IM 6+ MO Branch Influenza Virus 2020-01-29 Completed Universit y of Vaccine Quad .5 mL 00:00:00 [facility] IM 6+ MO Branch Influenza Virus 2020-01-29 Completed Universit y of Vaccine Quad .5 mL 00:00:00 [facility] IM 6+ MO Branch Vital Signs Vital Name Observation Time Observation Value Comments Source Systolic blood 2020-04-15 16:21:00 110 mm[Hg] Univer sity of pressure [facility] Diastolic blood 2020-04-15 16:21:00 70 mm[Hg] Unive rsity of pressure [facility] Body weight 2020-04-15 16:21:00 116.121 kg Universi ty [facility] BMI 2020-04-15 16:21:00 45.35 kg/m2 Universi ty [facility] Systolic blood 2019-11-05 18:03:00 140 mm[Hg] Univer sity of pressure [facility] Diastolic blood 2019-11-05 18:03:00 84 mm[Hg] Unive rsity of pressure [facility] Heart rate 2019-11-05 18:03:00 83 /min Universi ty of [facility] Body temperature 2019-11-05 18:03:00 36.67 Micaela [facility] Respiratory rate 2019-11-05 18:03:00 18 /min [facility] Oxygen saturation in 2019-11-05 18:03:00 97 /min [facility] Arterial blood by [facility] Pulse oximetry Branch Procedures This patient has no known procedures. Encounters Start End Encounter Admission Attending Care Care Encounter Source Date/Time Date/Time Type Type Clinicians Facility Department ID 2021-07-02 2021-07-02 Outpatient [facility] [id number] [place] 00:00:00 00:00:00 SOFYA [address] 2021-07-02 2021-07-02 Outpatient [facility] [id number] [place] 00:00:00 00:00:00 SOFYA [address] 2021-05-21 2021-05-21 Outpatient [facility] [id number] [place] 00:00:00 00:00:[address] 2021-05-12 2021-05-12 Outpatient R RADIOLOGY [facility] [id number] [place] [facility] 14:19:43 23:59:00 ity [facility] 2021-05-12 2021-05-12 Hospital Radiology [facility] [id number] [place] [facility] 14:19:43 23:59:00 Encounter [place] [id number] ity [facility] [id number] [facility] [id number] [facility] 800 Branch 2021-05-12 2021-05-12 Outpatient R RADIOLOGY [facility] [id number] Univers 00:00:00 00:00:00 [id number] ity of [facility] 2021-03-26 2021-03-26 Outpatient [facility] [id number] [place] 00:00:00 00:00:00 SOFYA [address] 2021-03-26 2021-03-26 Outpatient [facility] [id number] [place] 00:00:00 00:00:00 SOFYA [address] 2020-12-04 2020-12-04 Outpatient [facility] [id number] [place] 00:00:00 00:00:00 SOFYA [address] 2020-10-17 2020-10-17 [facility] [id number] Univers 14:15:00 14:15:00 RUBIN [id number] [facility] 2020-10-15 2020-10-15 Outpatient [facility] [id number] [place] 00:00:00 00:00:00 REGINA 612 [place] 2020-07-31 2020-07-31 Outpatient [facility] [id number] [place] 00:00:00 00:00:00 SOFYA [address] 2020-07-31 2020-07-31 Outpatient [facility] [id number] [place] 00:00:00 00:00:00 SOFYA [address] 2020-07-06 2020-07-06 Outpatient [facility] [id number] Univers 15:10:00 [facility]:10[facility] 2020-06-27 2020-06-27 Outpatient [facility] [id number] [place] 00:00:00 00:00:00 SOFYA [address] 2020-06-15 2020-06-15 Outpatient [facility] [id number] Univers 14:45:00 14:45:00 [facility] 2020-05-22 2020-05-22 Outpatient [facility] [id number] [place] 00:00:00 00:00:[address] 2020-04-30 2020-04-30 [facility] [id number] Univers 00:00:00 00:00:00 Secure [facility] [id number] [facility] [id number] [place] as Professio [phone] Az dical nal 044 [place] Office [facility] 2020-04-23 2020-04-23 Laboratory Lab, Adc Fam Pob I [facility] [id number]. [id number] [id number] Univers 17:09:18 17:29:18 Only [facility] [id number] ity of [place] [id number] [place] Professio [phone] Az dical nal 044 [place] Office [facility] 2020-04-23 2020-04-23 Outpatient R [facility] [id number] Univers 17:20:00 17:20:00 [id number] ity [facility] 2020-04-23 2020-04-23 Outpatient R KINGSLEY [facility] [id number] Univers 17:20:00 17:20:00 ИВАН [facility] 2020-04-15 2020-04-15 [facility] [id number] [id number] Univers 10:14:23 10:35:[address] [facility] [id number] it y of [place] [id number] [place] as Professio [phone] Az dical nal [address] [place] [address] Office [facility] 2020-04-15 2020-04-15 Outpatient R DHRUV, [facility] [id number] Univers 10:15:00 10:15:00 RUBIN [id number] y [facility] 2020-04-15 2020-04-15 Outpatient R DHRUV [facility] [id number] Univers 10:15:00 10:15:00 [facility] 2020-03-06 2020-03-06 [facility] [id number] [place] 00:00:00 00:00:00 SOFYA [address] 2020-01-17 2020-01-17 Outpatient DHRUV [facility] [id number] Univers 10:15:00 10:15:00 RUBIN [id number] ity [facility] 2020-01-11 2020-01-11 [facility] [id number] [place] 00:00:00 00:00:[address] 2019-12-27 2019-12-27 [facility] [id number] [place] 00:00:00 00:00:00 SOFYA 010 Method i 2019-11-06 2019-11-06 Telephone JAMAR Retana [id number] [id number] [place] [facility] 00:00:00 00:00:00 Dusty Mendiola DEON [id number] it [facility] [id number] [place] [phone] [address] 2019-11-05 2019-11-05 Outpatient R [facility] [id number] Univers 13:00:00 13:00:00 [id number] [facility] 2019-11-05 2019-11-05 Outpatient R UNKNOWN, [facility] [id number] Univers 13:00:00 13:00:00 ATTENDING [facility] 2019-11-05 2019-11-05 Urgent Clinic, Gal Pcp Assessment [facility] [id number] [id number] Univers 12:39:55 12:54:55 Care Unknown, Attending PRIMARY [id number] [facility] [id number] Azael RODRIGUEZ [phone] Az dical 042 [place] 2019-10-02 2019-10-02 Outpatient [facility] [id number] [place] 00:00:00 00:00:00 SOFYA 436 [facility] i 2019-09-28 2019-09-28 Outpatient [facility] [id number] [place] 00:00:00 00:00:00 SOFYA 339 [facility] i 2019-06-21 2019-06-21 Outpatient [facility] [id number] [place] 00:00:00 00:00:00 SOFYA 963 Method i 2019-04-19 2019-04-19 Emergency X MARY, [facility] ERT [id number] Univers 15:31:08 18:11:00 SRINATH [facility] Results This patient has no known results.
[2021-08-05 17:56] LABS: Absolute Lymphocytes (CBC) 1.6 K/uL (0.7-4.9); Hematocrit 38.7 % (36.0-45.0); Lymphocytes % 22.3 % (15.3-44.8); MPV 7.4 fL (7.6-11.3); RBC Red Blood Cell Count 3.95 M/uL (3.86-4.86)
[2021-08-05 18:04] LABS: Protime INR 1.1
[2021-08-05 18:13] LABS: Albumin 3.4 g/dL (3.4-5.0); Bilirubin Total 0.7 mg/dL (0.2-1.0); Potassium 3.8 mmol/L (3.5-5.1); Protein, Total 7.8 g/dL (6.4-8.2)
--- NOTE | 2021-08-05 18:44 | RAD REPORT ---
EXAM DESCRIPTION: CT - Soft Tissue Neck W/Contr - 08/05/2021 6:27 pm CLINICAL HISTORY: Neck mass, nonpulsatile COMPARISON: Soft Tissue Neck W/Contr dated 12/05/2020 TECHNIQUE: During dynamic enhancement using 100 milliliters nonionic IV contrast, axial 5 millimeter thick images of the neck were obtained. All CT scans are performed using dose optimization technique as appropriate and may include automated exposure control or mA/KV adjustment according to patient size. FINDINGS: History indicates left-sided neck swelling and pain since with history of salivar y gland removal on the left side. Date of removal is not known. No normal left submandibular gland seen. At the site of the left submandibular gland bed there is a 5 centimeter heterogeneous mass. This has thickened irregular shaggy rim or rind with central hypodens ity. No air within this mass. There are several adjacent reactive type lymph nodes present. The left salivary gland duct stones seen in the anterior left floor the mouth have not changed. The submandibular gland mass is concerning for abscess. Margins of the collection are slightly more s haggy in irregular than typically seen with a postoperative seroma/hematoma. The adjacent subcutaneou s fatty tissues are edematous. The left-side parotid gland is unremarkable. The right-side salivary glands are normal. No thyroid gl and significant finding. There is minimal sub centimeter nodularity. No pharyngeal mucosal mass or asymmetry. No tonsil or tongue base abnormality seen. Epiglottis, castillo culae and piriform sinuses are unremarkable. No vocal cord abnormality. IMPRESSION: Approximately 5 centimeter heterogeneous low-density mass with thickened irregular rind or rim is present at the left submandibular bed. History indicates salivary gland removal, date of procedure on known. The left submandibular region mass is suspicious for abscess. This is more shaggy and irregular in ap pearance than postoperative hematoma or seroma.
--- NOTE | 2021-08-05 19:07 | ER ---
Nurse's Notes [facility] Name: Megan León Age: 61 yrs Sex: Female : 1960 Arrival Date: 08/05/2021 Time: 16:01 Bed 25 Private MD: ARCADIO AU Diagnosis: Cutaneous abscess of neck Presentation: 08/05 17:06 Chief complaint: Patient states: left sided neck swelling and redness since Wednesday, was iw seen by Dr. Au and was told she needs ER eval with Ct and abx. Coronavirus screen: At this time, the client does not indicate any symptoms associated with coronavirus-19. Ebola Screen: Patient negative for fever greater than or equal to 101.5 degrees Fahrenheit, and additional compatible Ebola Virus Disease symptoms Patient denies exposure to infectious person. Patient denies travel to an Ebola-affected area in the 21 days before illness onset. No symptoms or risks identified at this time. Risk Assessment: Do you want to hurt yourself or someone else? Patient reports no desire to harm self or others. Onset of symptoms was August 05, 2021. 17:06 Method Of Arrival: Ambulatory iw 17:06 Acuity: MARY 3 iw Historical: - Allergies: 17:07 No Known Allergies; iw - Immunization history:: Adult Immunizations up to date, Client reports receiving the 2nd dose of the Covid vaccine. - Social history:: Patient/guardian denies using alcohol, street drugs, The patient lives with family, Smoking status: Patient denies any tobacco usage or history of. Patient/guardian denies using alcohol. - Family history:: not pertinent. Screenin:56 Abuse screen: Denies threats or abuse. Denies injuries from another. Nutritional ld1 screening: No deficits noted. Tuberculosis screening: No symptoms or risk factors identified. Fall Risk None identified. Assessment: 17:55 General:. ld1 17:56 General: Appears in no apparent distress. comfortable, Behavior is calm, cooperative, ld1 appropriate for age. Pain: Denies pain. Neuro: Level of Consciousness is awake, alert, obeys commands, Oriented to person, place, time, situation. Cardiovascular: Capillary refill < 3 seconds Patient's skin is warm and dry. Rhythm is regular. Respiratory: Airway is patent Respiratory effort is even, unlabored, Respiratory pattern is regular, symmetrical. GI: Abdomen is round non-distended, obese. : No signs and/or symptoms were reported regarding the genitourinary system. EENT: No signs and/or symptoms were reported regarding the EENT system. Derm: No signs and/or symptoms reported regarding the dermatologic system. Musculoskeletal: Swelling present in neck. 19:43 Reassessment: Patient appears in no apparent distress at this time. Patient and/or ld1 family updated on plan of care and expected duration. Pain level reassessed. Patient is alert, oriented x 3, equal unlabored respirations, skin warm/dry/pink. 20:38 Reassessment: Patient appears in no apparent distress at this time. Patient and/or ld1 family updated on plan of care and expected duration. Pain level reassessed. Vital Signs: 17:07 BP 140 / 80; Pulse 83; Resp 16 S; Temp 96.9; Pulse Ox 95% on R/A; iw 17:56 BP 134 / 70; Pulse 86; Resp 18; Pulse Ox 98% on R/A; Pain 0/10; ld1 19:43 BP 135 / 74; Pulse 95; Resp 18; Pulse Ox 94% on R/A; ld1 20:38 BP 130 / 77; Pulse 95; Resp 18; Pulse Ox 92% on R/A; ld1 21:37 BP 133 / 79; Pulse 102; Resp 18; Pulse Ox 90% on R/A; ld1 08/06 01:57 BP 128 / 74; Pulse 98; Resp 20; Pulse Ox 92% on 2 lpm NC; wm 03:55 BP 128 / 75; Pulse 98; Resp 18; Pulse Ox 93% on 2 lpm NC; wm 06:24 BP 125 / 77; Pulse 109; Resp 16; Pulse Ox 96% on 2 lpm NC; ED Course: 08/05 16:01 Patient arrived in ED. am2 16:01 ARCADIO AU is Private Physician. am2 16:10 Alejandro Moncada MD is Attending Physician. ma2 17:07 Triage completed. iw 17:07 Arm band placed on. iw 17:34 Li Gupta, ONEAL is Primary Nurse. ld1 17:56 Patient has correct armband on for positive identification. Placed in gown. Bed in low ld1 position. Call light in reach. Side rails up X2. school bus monitor on. Pulse ox on. NIBP on. Door closed. Noise minimized. Warm blanket given. 17:56 No provider procedures requiring assistance completed. Inserted saline lock: 20 gauge ld1 in left antecubital area, using aseptic technique. Blood collected. 17:58 SARS-COV-2 RT PCR (Document "Date of Onset" if Symptomatic) Sent. ld1 18:28 CT Soft Tissue Neck W/contr In Process Unspecified. EDMS 19:06 Alejandro Rothman MD is Hospitalizing Provider. [facility] 08/06 06:17 Assisted to bathroom. wm Administered Medications: 08/05 19:35 Drug: Augmentin (Amoxicillin-Clavulanate) 875 mg Route: PO; ld1 19:35 Drug: NS 0.9% 1000 ml Route: IV; Rate: 1 bolus; Site: left antecubital; ld1 19:35 Drug: Clindamycin 600 mg Route: IVPB; Infused Over: 30 mins; Site: left antecubital; ld1 19:36 Drug: morphine 4 mg Route: IVP; Site: left antecubital; ld1 19:36 Drug: Zofran (Ondansetron) 4 mg Route: IVP; Site: left antecubital; ld1 19:36 Drug: MethylPrednisoLONE 125 mg Route: IVP; Site: left antecubital; ld1 Outcome: 19:06 Decision to Hospitalize by Provider. [facility] 08/06 09:47 Patient left the ED. iw Signatures: Dispatcher [employer] EDMS Noelle Downs RN RN Nettie Vera Mohammad, MD MD md2 Li Gupta RN RN ld1 Annie Kincaid Corrections: (The following items were deleted from the chart) 06:33 01:57 BP 128 / 74; Pulse 98bpm; Resp 20bpm; Pulse Ox 92% RA; wm wm 06:33 03:55 BP 128 / 75; Pulse 98bpm; Resp 18bpm; Pulse Ox 93% RA; wm wm
--- NOTE | 2021-08-05 19:07 | EDPHYS ---
Physician Documentation [facility] Name: Megan León Age: 61 yrs Sex: Female : 1960 Arrival Date: 08/05/2021 Time: 16:01 Bed 25 Private MD: ARCADIO LOZA ED Physician Alejandro Moncada HPI: 08/05 16:24 This 61 yrs old Female presents to ER via Unassigned with complaints of Neck Swelling. ma2 16:24 Onset: The symptoms/episode began/occurred gradually, 1 week(s) ago. Associated signs ma2 and symptoms: Pertinent negatives: constipation, bladder incontinence, bowel incontinence, tingling. Severity of symptoms: At their worst the symptoms were. I received a phone call from ENT Dr. Taylor about this patient, she stated that this patient is s/p cervical lymph node resection, and she has been having right neck swelling she examined her and that she found that swelling is firm she would like a CT with IV contrast, she also would like her to be admitted with IV antibiotics and she will see her in the hospital. Historical: - Allergies: 17:07 No Known Allergies; iw - Immunization history:: Adult Immunizations up to date, Client reports receiving the 2nd dose of the Covid vaccine. - Social history:: Patient/guardian denies using alcohol, street drugs, The patient lives with family, Smoking status: Patient denies any tobacco usage or history of. Patient/guardian denies using alcohol. - Family history:: not pertinent. ROS: 16:24 Constitutional: Negative for fever, chills, and weight loss. ma2 16:24 All other systems are negative. Exam: 16:24 Constitutional: This is a well developed, well nourished patient who is awake, alert, ma2 and in no acute distress. Head/Face: Normocephalic, atraumatic. Eyes: Pupils equal round and reactive to light, extra-ocular motions intact. Lids and lashes normal. Conjunctiva and sclera are non-icteric and not injected. Cornea within normal limits. Periorbital areas with no swelling, redness, or edema. ENT: Right subcervical, right neck swelling mildly tender, warm, there is no fluctuance or crepitations. Nonpulsatile. Airways patent with no stridor. Nares patent. No nasal discharge, no septal abnormalities noted. Tympanic membranes are normal and external auditory canals are clear. Oropharynx with no redness, swelling, or masses, exudates, or evidence of obstruction, uvula midline. Mucous membranes moist. Neck: Trachea midline, no thyromegaly or masses palpated, and no cervical lymphadenopathy. Supple, full range of motion without nuchal rigidity, or vertebral point tenderness. No Meningismus. Chest/axilla: Normal chest wall appearance and motion. Nontender with no deformity. No lesions are appreciated. Cardiovascular: Regular rate and rhythm with a normal S1 and S2. No gallops, murmurs, or rubs. Normal PMI, no JVD. No pulse deficits. Respiratory: Lungs have equal breath sounds bilaterally, clear to auscultation and percussion. No rales, rhonchi or wheezes noted. No increased work of breathing, no retractions or nasal flaring. Abdomen/GI: Soft, non-tender, with normal bowel sounds. No distension or tympany. No guarding or rebound. No evidence of tenderness throughout. MS/ Extremity: Pulses equal, no cyanosis. Neurovascular intact. Full, normal range of motion. Neuro: Awake and alert, GCS 15, oriented to person, place, time, and situation. Cranial nerves II-XII grossly intact. Motor strength 5/5 in all extremities. Sensory grossly intact. Cerebellar exam normal. Normal gait. Vital Signs: 17:07 BP 140 / 80; Pulse 83; Resp 16 S; Temp 96.9; Pulse Ox 95% on R/A; iw 17:56 BP 134 / 70; Pulse 86; Resp 18; Pulse Ox 98% on R/A; Pain 0/10; ld1 19:43 BP 135 / 74; Pulse 95; Resp 18; Pulse Ox 94% on R/A; ld1 20:38 BP 130 / 77; Pulse 95; Resp 18; Pulse Ox 92% on R/A; ld1 21:37 BP 133 / 79; Pulse 102; Resp 18; Pulse Ox 90% on R/A; ld1 08/06 01:57 BP 128 / 74; Pulse 98; Resp 20; Pulse Ox 92% on 2 lpm NC; wm 03:55 BP 128 / 75; Pulse 98; Resp 18; Pulse Ox 93% on 2 lpm NC; wm 06:24 BP 125 / 77; Pulse 109; Resp 16; Pulse Ox 96% on 2 lpm NC; wm MDM: 08/05 17:44 Patient medically screened. ma2 18:54 Differential diagnosis: arthritis, Abscess versus hematoma versus lymph node ma2 enlargement versus seroma. Data reviewed: vital signs, nurses notes, EMS record. Counseling: I had a detailed discussion with the patient and/or guardian regarding: the historical points, exam findings, and any diagnostic results supporting the discharge/admit diagnosis, the presence of at least one elevated blood pressure reading (>120/80) during this emergency department visit, the need for further work-up and treatment in the hospital. Response to treatment: the patient's symptoms have markedly improved after treatment. ED course: CT shows 5 cm abscess, vital signs within normal limits lab work unremarkable discussed with Dr. omalley again and she recommends NPO at midnight steroid clindamycin Augmentin and she will add her to her list as the 1st case in the morning . 08/05 16:13 Order name: Blood Culture Adult (2) [facility] 08/05 16:13 Order name: CBC with Diff; Complete Time: 18:03 [facility] 08/05 16:13 Order name: CMP; Complete Time: 18:29 [facility] 08/05 16:13 Order name: Protime (+inr); Complete Time: 18:29 [facility] 08/05 16:13 Order name: Ptt, Activated; Complete Time: 18:29 [facility] 08/05 16:24 Order name: SARS-COV-2 RT PCR (Document "Date of Onset" if Symptomatic); Complete Time: [facility] 19:50 08/05 16:13 Order name: CT Soft Tissue Neck W/contr; Complete Time: 18:51 [facility] 08/05 22:55 Order name: Glucose, Ancillary Testing EDID 08/06 08:22 Order name: Glucose, Ancillary Testing EDID 08/05 16:13 Order name: EKG - Nurse/Tech; Complete Time: 18:06 [facility] 08/05 16:13 Order name: IV Saline Lock - Large Bore; Complete Time: 17:58 [facility] 08/05 16:13 Order name: Labs collected and sent; Complete Time: 17:58 [facility] 08/05 16:13 Order name: O2 Per Protocol; Complete Time: 17:34 [facility] 08/05 16:13 Order name: O2 Sat Monitoring; Complete Time: 17:34 ma2 Administered Medications: 19:35 Drug: Augmentin (Amoxicillin-Clavulanate) 875 mg Route: PO; ld1 19:35 Drug: NS 0.9% 1000 ml Route: IV; Rate: 1 bolus; Site: left antecubital; ld1 19:35 Drug: Clindamycin 600 mg Route: IVPB; Infused Over: 30 mins; Site: left antecubital; ld1 19:36 Drug: morphine 4 mg Route: IVP; Site: left antecubital; ld1 19:36 Drug: Zofran (Ondansetron) 4 mg Route: IVP; Site: left antecubital; ld1 19:36 Drug: MethylPrednisoLONE 125 mg Route: IVP; Site: left antecubital; ld1 Disposition Summary: 08/05/21 19:06 Hospitalization Ordered Hospitalization Status: Inpatient Admission ma2 Provider: Alejandro Rothman ma2 Condition: Stable ma2 Problem: new ma2 Symptoms: are unchanged ma2 Bed/Room Type: Standard [facility] Location: [facility] ER HOLD(08/06/21 09:18) Room Assignment: (08/06/21 09:18) Diagnosis - Cutaneous abscess of neck ma2 Forms: - Medication Reconciliation Form ma2 - SBAR form ma2 Signatures: Dispatcher [employer] EDJennifer Mittal Diana RN Noelle Gee RN Mesha Gibson RN RN cg Alzahri, Mohammad, MD MD ma2 Li Gupta RN RN trevon1 Margy Frost PA PA sb3 Corrections: (The following items were deleted from the chart) 20:35 19:06 Telemetry/MedSurg (Inpatient) ma2 cg 20:35 19:06 ma2 cg 08/06 09:16 08/05 20:35 [facility] ER HOLD cg bd 08/06 09:16 08/05 20:35 ERHOLD- cg bd 08/06 09:18 09:16 Telemetry/MedSurg (Inpatient) bd dw 09:18 09:16 404 bd dw
[2021-08-05] MEDS ORDERED: METHYLPREDNISOLONE 125 MG INJ ONE (19:22)
[2021-08-05] MEDS ORDERED: AMOX/K CLAV 875 MG TAB ONE (19:23)
[2021-08-05] MEDS ORDERED: ONDANSETRON 4 MG/2 ML VIAL ONE ×2 (19:23→22:55)
[2021-08-05] MEDS ORDERED: CLINDAMYCIN 600MG/D5W 600 MG/50 ML BAG IV ONE (19:23)
[2021-08-05] MEDS ORDERED: MORPHINE 4 MG/ML SYR ONE ×2 (19:23→22:55)
[2021-08-05] MEDS ORDERED: NA CHLORIDE 0.9% 1,000 ML ONE ×2 (19:23→22:51)
--- NOTE | 2021-08-05 20:28 | P.HP ---
Certification for Inpatient Patient admitted to: Observation With expected LOS: <2 Midnights Patient will require the following post-hospital care: None Practitioner: I am a practitioner with admitting privileges, knowledge of patient current condition, hospital course, and medical plan of care. 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 She reports the pain began about 4 days ago and has progr essively worsened. Dr. Au is her surgeon and follows her case and instructed her to come to the ED for CT. CT soft tissue neck showed 5 centimeter heterogeneous low-density mass with thickened irregular rind or rim is present at the left submandibular bed.The left submandibular region mass is suspicious for abscess. Dr. Au was notified and wishes to admit patient and operate in the morning. Labs within normal limits, vital signs stable. Patient reports her pain is improved with morphine. Will admit patient for medical management. Allergies No Known Allergies Allergy (Verified 03/26/21 14:03) Home Medications: Allopurinol 300 mg PO DAILY 03/26/21 Amlodipine [Norvasc] 5 mg PO DAILY 03/26/21 Carvedilol [Coreg] 12.5 mg PO BEDTIME 03/26/21 Carvedilol [Coreg] 25 mg PO DAILY 03/26/21 Dulaglutide [Trulicity] 3 mg SQ SEECOM 03/26/21 Duloxetine HCl [Cymbalta] 30 mg PO BEDTIME 03/26/21 Duloxetine HCl [Cymbalta] 60 mg PO BEDTIME 03/26/21 Empagliflozin/Metformin HCl [Synjardy 12.5-1,000 mg Tablet] 1 tab PO BID 03/26/21 Gabapentin [Neurontin] 800 mg PO TID 03/26/21 Glimepiride [Amaryl] 1 mg PO DAILY 03/26/21 Losartan Potassium 100 mg PO DAILY 03/26/21 Metformin ER [Glucophage ER*] 1,000 mg PO BID 03/26/21 Omeprazole [Prilosec] 40 mg PO DAILY 03/26/21 Pravastatin [Pravachol*] 40 mg PO DAILY 03/26/21 Ropinirole HCl 0.5 mg PO BID 03/26/21 - Past Medical/Surgical History -: HTN -: Type 2 Diabetes- Non insulin dependent -: Cholecystectomy -: Hysterectomy -: Appendectomy -: Tonsillectomy -: Shoulder surgery -: Knee replacement -: Excision of left submandibular gland Psychosocial/ Personal History: Patient lives at home with her . - Social History Smoking Status: Never smoker Alcohol use: No CD- Drugs: No Caffeine use: Yes Place of Residence: Home Review of Systems 10-point ROS is otherwise unremarkable ENT: As per HPI Physical Examination - Physical Exam General: Alert, In no apparent distress, Oriented x3 HEENT: Atraumatic, PERRLA, Mucous membr. moist/pink, EOMI, Sclerae nonicteric Neck: Supple, 2+ carotid pulse no bruit, No LAD, Other (Swelling and tenderness to the left side), Without JVD or thyroid abnormality Respiratory: Clear to auscultation bilaterally, Normal air movement Cardiovascular: Regular rate/rhythm, Normal S1 S2 Gastrointestinal: Normal bowel sounds, No tenderness Musculoskeletal: No tenderness Integumentary: No rashes Neurological: Normal speech, Normal strength at 5/5 x4 extr, Normal tone, Normal affect - Studies Laboratory Data (last 24 hrs) 08/05/21 17:43: PT 12.1, INR 1.10, APTT 42.0 H 08/05/21 17:43: Sodium 138, Potassium 3.8, BUN 19 H, Creatinine 1.08, Glucose 100, Total Bilirubin 0.7, AST 11 L, ALT 29, Alkaline Phosphatase 65 08/05/21 17:43: WBC 7.1, Hgb 12.9, Hct 38.7, Plt Count 226 Assessment and Plan - Problems (Diagnosis) (1) Cutaneous abscess of neck Current Visit: Yes Status: Acute (2) Type 2 diabetes mellitus Current Visit: Yes Status: Acute Qualifiers: Diabetes mellitus superintendent container terminal insulin use: without superintendent container terminal use Diabetes mellitus complication status: without complication Qualified Code(s): E11.9 - Type 2 diabetes mellitus without complications (3) Hypertension Current Visit: Yes Status: Chronic Qualifiers: Hypertension type: primary hypertension Qualified Code(s): I10 - Essential (primary) hypertension - Plan -Dr. Au to operate in the morning with antibiotic and steroid prophylaxis now- clindamycin, Augmentin, methylprednisone -N.p.o. at midnight. IV fluids overnight -Morphine as needed pain and Zofran as needed nausea -ACHS Accu-Cheks with mild sliding scale insulin -Continue home medications as appropriate -SCDs for DVT prophylaxis Discharge Plan: Home Plan to discharge in: 24 Hours - Advance Directives Does patient have a Living Will: No Does patient have a Durable POA for Healthcare: No - Code Status/Comfort Care Code Status Assessed: Yes (Full) Critical Care: No Time Spent Managing Pts Care (In Minutes): 50
[2021-08-05] MEDS ORDERED: ONDANSETRON 4 MG/2 ML VIAL IV PRN (22:30)
[2021-08-05] MEDS ORDERED: GLUCAGON 1 MG/VIAL IM PRN (22:30)
[2021-08-05] MEDS ORDERED: D50W 25 GM/50 ML SYRINGE IV PRN (22:30)
[2021-08-05] MEDS ORDERED: HYDRALAZINE HCL 20 MG/ML VIAL IV PRN (22:30)
[2021-08-05] MEDS ORDERED: ACETAMINOPHEN 500 MG TAB PO PRN (22:30)
[2021-08-05] MEDS ORDERED: INSULIN -REGULAR HUMAN 50 UNIT/0.5 ML ML SQ SCH (22:30)
[2021-08-05] MEDS: NA CHLORIDE 0.9% 1,000 ML IV SCH (22:30)
[2021-08-05 22:34] VITALS: BMI 33.9
[2021-08-05] MEDS ORDERED: INSULIN -REGULAR HUMAN 50 UNIT/0.5 ML ML ONE (22:51)
[2021-08-05] MEDS: MORPHINE 4 MG/ML SYR IV PRN (22:56)
[2021-08-06] MEDS ORDERED: METHYLPREDNISOLONE 125 MG INJ ONE ×2 (00:10→05:50)
[2021-08-06] MEDS ORDERED: CLINDAMYCIN 600MG/D5W 600 MG/50 ML BAG IV ONE (00:12)
[2021-08-06] MEDS: CLINDAMYCIN INJ 600 MG in NA CHLORIDE 0.9% 50 ML IV SCH ×2 (00:22→08:48)
[2021-08-06] MEDS: MORPHINE 4 MG/ML SYR IV PRN (04:05)
[2021-08-06] MEDS ORDERED: MORPHINE 4 MG/ML SYR ONE (04:09)
[2021-08-06] MEDS: METHYLPREDNISOLONE 125 MG INJ IV SCH ×2 (05:48)
[2021-08-06] MEDS ORDERED: NA CHLORIDE 0.9% 1,000 ML ONE (08:06)
[2021-08-06] MEDS: NA CHLORIDE 0.9% 1,000 ML IV SCH (08:30)
[2021-08-06] MEDS ORDERED: LIDOCAINE 1% W/EPI 1:100,000 10 ML VIAL ONE (08:47)
[2021-08-06] MEDS ORDERED: propofoL 200 MG/20 ML VIAL IV ONE (09:28)
[2021-08-06] MEDS ORDERED: FENTANYL CITR 100 MCG/2 ML ONE (09:28)
[2021-08-06] MEDS ORDERED: MIDAZOLAM HCL 2 MG/2 ML INJ ONE (09:29)
[2021-08-06] MEDS ORDERED: ONDANSETRON 4 MG/2 ML VIAL ONE ×2 (09:32→14:55)
[2021-08-06] MEDS ORDERED: LIDOCAINE 2% MPF 5 ML VIAL ONE (09:32)
[2021-08-06] MEDS ORDERED: SUCCINYLCHOLINE 20 MG/ML (10 ML) IV ONE (09:42)
--- NOTE | 2021-08-06 11:47 | HP ---
Date of Admission: 08/05/2021 Chief Complaint: Left upper neck mass. History Of Chief Complaint: The patient presented to my office with an enlarging left upper neck mas s, which was exquisitely painful and she developed fever off and on for the past 3 days. She stated that the mass started out as a small knot and then increased significantly over the past 24 hours. S he presented to my office initially and then she was directed to go to the emergency room to be admit feliberto for IV antibiotics and steroids and possible incision and drainage and a stat CT scan of the soft tissue neck. She denies all other ENT complaints including shortness of breath, cough, sensation of throat closing, and sore throat. Past Medical History: Hypertension, obesity, type 2 diabetes mellitus, migraine, chronic sialadeniti s. Past Surgical History: Cholecystectomy, bilateral knee surgery, right shoulder surgery for torn rota tor cuff, gluteal cyst I and D, excision of left submandibular gland, tonsillectomy. Medications: Allopurinol, amlodipine/olmesartan, carvedilol, duloxetine, gabapentin, pravastatin, Tr ulicity. Allergies: NO KNOWN DRUG ALLERGIES. Social History: Denies alcohol, tobacco, illicit drugs. Review of Systems: Head: Denies headache, trauma. Eyes: Denies epiphora, redness, visual disturbance. Ears: Denies otorrhea, otalgia, hearing loss, tinnitus. Nose: Denies rhinorrhea, nasal congestion, exudate. Throat: Denies swelling, globus sensation, pain. Neck: Positive for left upper neck swelling, pain. Constitutional: Positive for intermittent fever. Physical Examination: Vital Signs: Stable. Blood pressure 123/67, pulse is 88, and O2 saturations are 99% on room air. Head: Atraumatic, normocephalic. Eyes: PERRLA/EOMI. Ears: Bilateral external auditory canals patent. Tympanic membranes intact. Nose: Midline septum. Moist nasal mucosa. Oral cavity: Moist oral mucosa. Midline uvula. Palpation of floor mouth did not demonstrate any ob vious stone. Neck: Significantly enlarged left upper neck mass versus abscess versus hematoma approximately 5-6 c m in diameter with significant tenderness to palpation. Trachea is midline. Lungs: Clear to auscultation bilaterally. Heart: Regular rate and rhythm. No murmurs. Laboratory Data: CT scan of soft tissue neck pending. Diagnosis: Left upper neck mass versus abscess versus hematoma. Recommendations: 1.We will send to the emergency room for a CT scan of the soft tissue neck with a stat read and plan is to place on IV antibiotics and steroids and to incise and drain the abscess soon. 2.Further recommendations to follow. LUCIO Voice ID: [id number]
[2021-08-06] MEDS ORDERED: HYDROMORPHONE HCL 1 MG/ML INJ ONE (12:00)
[2021-08-06] MEDS ORDERED: dexAMETHasone 10 MG/ML VIAL ONE (12:12)
[2021-08-06] MEDS ORDERED: NEOSTIGMINE 1 MG/ML -5 ML ONE (13:02)
[2021-08-06] MEDS ORDERED: GLYCOPYRROLATE 0.2 MG/ML SYR ONE (13:02)
[2021-08-06] MEDS: MORPHINE 4 MG/ML SYR ONE ×2 (13:43→13:49)
[2021-08-06] MEDS ORDERED: CODEINE 30MG/APAP 300MG TAB ONE (14:55)
[2021-08-06] MEDS ORDERED: ONDANSETRON 4 MG/2 ML VIAL IV ONE (15:00)
[2021-08-06] MEDS ORDERED: CODEINE 30MG/APAP 300MG TAB PO ONE (15:00)
[2021-08-06] MEDS ORDERED: CODEINE 30MG/APAP 300MG TAB PO PRN (15:30)
[2021-08-06] MEDS ORDERED: ACETAMINOPHEN 325 MG TABLET PO PRN (15:32)
[2021-08-06] MEDS ORDERED: ONDANSETRON 4 MG/2 ML VIAL IV PRN (15:33)
[2021-08-06 15:45] VITALS: BP 147/86; TEMP 97.6; O2SAT 98
--- NOTE | 2021-08-07 00:37 | OP ---
Date of Procedure: 08/06/2021 Surgeon: ARCADIO LOZA Primary Care Physician: Dr. Daniella Oneil. Preoperative Diagnoses: 1.Obstructive left floor of mouth salivary stones. 2.Left upper neck abscess. Postoperative Diagnoses: 1.Obstructive left floor of mouth salivary stones. 2.Left upper neck abscess. Procedures: 1.Extraction of left floor of mouth salivary stones with marsupialization of the mucosa. 2.Incision and drainage of left upper neck abscess. Anesthesia: General endotracheal anesthesia was administered. I also infiltrated approximately 3 mL of 1% lidocaine with 1:100,000 epinephrine into the left floor of mouth, followed by an additional 8 mL of the same anesthetic into the left upper neck incision site. Estimated Blood Loss: Approximately 5-10 mL. Specimens: Left floor of mouth salivary stone sent to Pathology for evaluation. I also obtained Gra m stain and cultures from the left upper neck abscess and sent to the laboratory for evaluation. Findings: Large obstructive salivary gland stone noted in left floor of mouth with a smaller stone n oted more proximal. The patient also had a very large left upper neck abscess, which came out to rou ghly about 3-5 cc of yellow purulent fluid. Complications: None. Disposition: Stable. The patient tolerated the procedure well. Indication For Procedure: The patient is a pleasant 61-year-old female who presented to my outpatien t clinic acutely after having significant left upper neck swelling and pain noted in the neck as well as in the left floor of mouth. Examination revealed a large left upper neck mass versus abscess. T hus, I felt it was necessary to send her to the emergency room and she was held in the ER and placed on IV antibiotics and steroids and then I obtained a CAT scan, which revealed obstructive salivary gl and stones involving the left Seward's duct and purulent secretions and abscess formation noted in t he left upper neck in level 1 of the neck. These were indications to bring the patient to the operat tomasz suite for the above-mentioned procedure. She understood. All questions were answered. Risks ve rsus benefits and complications were explained in detail and a consent form was signed, which was neto zaire the chart. Description Of Procedure: The patient was transferred from the preoperative holding area to the oper ative suite by Department of Anesthesia, placed on the operating table supine and sedated and intubat ed in normal fashion. The tube was taped to the right oral commissure. I infiltrated approximately 3 mL of 1% lidocaine with 1:100,000 epinephrine into the left floor of mouth. I then made an incisio n directly over Bella's duct where a palpable stone was located and this was extracted through the opening. There was a smaller stone behind or more proximal and this was also removed with hemostats. I irrigated the duct with saline irrigation and then hemostasis was achieved with suction Bovie cau naun on a setting of 20 for coagulation. I then marsupialized the opening of Seward's duct with 5.0 chromic gut suture in a continuous running fashion, which was like a pursestring fashion. I then in filtrated approximately 8 mL of 1% lidocaine with 1:100,000 epinephrine into the left upper neck absc ess area and this was infiltrated into the epidermis and dermis and the patient was then sterilely pr epped and draped. I made an incision through the previous scar from her submandibular gland excision. The incision was approximately 2-3 cm in length. I then incised to the level of the sub platysma and then switched t o a hemostat to open up the abscess pocket and I was able to obtain a large amount of yellow purulent secretions from the pocket. I then irrigated the wound with approximately 120 mL of sterile saline, followed by hemostatic packing of cold Surgicel into the wound. I then sutured a Ady-Moss drai n with a 3-0 Ethilon suture and then closed the skin and dermis with 3-0 Ethilon in a continuous runn ing fashion. A drain pad was placed and the patient was transferred back to Department of Anesthesia in stable condition. She will be discharged home on antibiotics and analgesic medication and will follow up in 1 day for assessment of drain output. DAR/SEBASITÁNL Voice ID: [id number] Report ID: [id number]
--- NOTE | 2021-08-07 07:57 | EKG ---
Test Date: 2021-08-05 Test Time: 18:08:38 Secure Software Assessor: KRYSTEN MEASUREMENT RESULTS: Intervals: Rate: 82 TN: 182 QRSD: 74 QT: 358 QTc: 418 [place]: P: 60 TN: 182 QRS: -12 T: 30 INTERPRETIVE STATEMENTS: Normal sinus rhythm Possible Anterior infarct, age undetermined Abnormal ECG Compared to ECG 06/27/2018 17:40:37 Myocardial infarct finding now present Electronically Signed On 08-07-21 07:55:37 CDT by Eliecer Owens
== END 2021-08-06 15:30 | disposition home or self-care (01) ==
LOC: ER 16:00 → ERHOLD 19:54
PROVIDERS: ADMIT Hospitalist; ATTEND Hospitalist
PROC: 0J950ZZ Drainage of Left Neck Subcutaneous Tissue and Fascia, Open Approach (ICD-10-PCS; 2021-08-06)
PROC: 0CCH0ZZ Extirpation of Matter from Left Submaxillary Gland, Open Approach (ICD-10-PCS; principal; 2021-08-06 08:45)
DX: K11.5 Sialolithiasis (principal); L02.11 Cutaneous abscess of neck; I10 Essential (primary) hypertension; E11.40 Type 2 diabetes mellitus with diabetic neuropathy, unspecified; K21.9 Gastro-esophageal reflux disease without esophagitis; M19.90 Unspecified osteoarthritis, unspecified site; G43.909 Migraine, unspecified, not intractable, without status migrainosus; G47.33 Obstructive sleep apnea (adult) (pediatric); Z99.81 Dependence on supplemental oxygen; E66.9 Obesity, unspecified; Z68.33 Body mass index [BMI] 33.0-33.9, adult; Z20.822 Contact with and (suspected) exposure to COVID-19; Z79.899 Other long term (current) drug therapy; Z79.84 Long term (current) use of oral hypoglycemic drugs; Z85.42 Personal history of malignant neoplasm of other parts of uterus; Z90.710 Acquired absence of both cervix and uterus; Z90.49 Acquired absence of other specified parts of digestive tract; Z96.659 Presence of unspecified artificial knee joint
CPT/HCPCS: 93005; 87040 ×2; 87070; 85025; 36415; 87205 ×2; 85610; 82947 ×3; 88300; 85730; 87075; 80053; 82360; 70491; 96375; 96374; 99284; 42330; 10060; U0003; Q9967; J2704; J1815; J2250; J3010; J1100; J1170; J2710; G0378 ×4; J7030 ×3; J2930 ×3; J2405 ×5; J0330